=== PATIENT | male | born 1995 | race American Indian/Alaskan Native ===

== ENCOUNTER 2017-03-20 15:19 | Emergency (ER) | payer SELFPAY ==
[2017-03-20 16:07] VITALS: BP 128/61
[2017-03-20] MEDS ORDERED: D5NS 0.2% 1,000 ML IV SCH (17:00)
[2017-03-20 17:02] LABS: Hematocrit 31.7 % (35.5-45.6); Hemoglobin 10.8 gm/dl (11.8-15.2); Mean Corpuscular HGB Conc 34 % (32-34); Mean Corpuscular Hemoglobin 30 pg (28-32); Mean Corpuscular Volume 88 fl (84-94); Platelet Count 867 K/mm3 (140-440); Red Blood Count 3.61 M/mm3 (3.65-5.03)
[2017-03-20 17:07] LABS: Red Cell Distribution Width 21.5 % (13.2-15.2)
[2017-03-20 17:09] LABS: BUN/Creatinine Ratio 45; Blood Urea Nitrogen 18 mg/dL (9-20); Calcium 9.9 mg/dL (8.4-10.2); Hemolysis Index 10
== END 2017-03-20 22:30 | disposition left against medical advice (07) ==
LOC: ED 15:19
DX: Z53.21 Procedure and treatment not carried out due to patient leaving prior to being seen by health care provider (principal)
CPT/HCPCS: 36415; 80048; 85027; 85045